=== PATIENT | male | born 1965 | race Caucasian/White ===

== ENCOUNTER 2017-02-23 13:40 | Emergency (ER) | payer BC ==
[~2017-02-23] VITALS: Ht 185.4 cm; Wt 97.5 kg
[~2017-02-23 13:40] MED LIST: CYCLOBENZAPRINE5 MG PO; PERCOCET 5-3251 EACH PO
[2017-02-23] MEDS ORDERED: OMEPRAZOLE20 M1 PO (13:50)
[2017-02-23] MEDS ORDERED: ASPIR-LOW81 MG PO (13:50)
--- NOTE | 2017-02-23 18:37 | EKG ---
[facility] [address] [facility] [place], [place] [address] Signed Sinus bradycardia Possible Anterior infarct , age undetermined Abnormal ECG No previous ECGs available Confirmed by JETT LYNN MD ([id number]) on 02/23/2017 6:37:44 PM Electronically Signed By: JETT LYNN MD 02/23/17 1837 PATIENT NAME: MIMI FERREIRA Electrocardiogram DATE OF : 63 PHYSICIAN: JETT LYNN MD REPORT #: [id number] REPORT IS CONFIDENTIAL AND NOT TO BE RELEASED WITHOUT AUTHORIZATION
== END 2017-02-23 15:45 | disposition home or self-care (01) ==
LOC: ED 13:40
DX: I49.3 Ventricular premature depolarization (principal); R73.9 Hyperglycemia, unspecified; F17.200 Nicotine dependence, unspecified, uncomplicated; Z79.899 Other long term (current) drug therapy; Z79.82 Long term (current) use of aspirin
CPT/HCPCS: 80053; 84443; 84484; 85025; 93005; 93010; 99284

== ENCOUNTER 2017-07-11 06:29 | Day surgery (SDC) | payer BC ==
[~2017-07-11] VITALS: Ht 185.4 cm; Wt 104.8 kg
[~2017-07-11 06:29] MED LIST changes: +ASPIR-LOW81 MG PO; +OMEPRAZOLE20 M1 PO
[2017-07-11] MEDS ORDERED: CAL MAG ZINC +1 EACH PO (06:42)
--- NOTE | 2017-07-11 09:54 | OR ---
[facility] [address] [place], [place] [address] Signed DATE OF OPERATION: 07/11/2017 SURGEON: Erica Shine MD PREOPERATIVE DIAGNOSES: 1. Gastroesophageal reflux disease. 2. Personal history of colonic polyps. POSTOPERATIVE DIAGNOSES: 1. Diffuse gastritis. 2. A 4 mm polyps x4 in base of cecum. 3. A 5 mm polyp at 25 cm. 4. Jxbllqh-lz-ycelpkum internal hemorrhoids. 5. Aoimgbz-ii-tkxwjksj external hemorrhoids. PROCEDURES: 1. EGD with CLOtest and biopsies of the antrum. 2. Colonoscopy with hot biopsy. ESTIMATED BLOOD LOSS: None. 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 He came to us from [place], [place]. He has been sent for both upper and lower endoscopy. He had this done at age 48. The upper endoscopy, cannot remember, but he said 11 colonic polyps were removed. They wanted him back in 3 years for repeat colonoscopy. In the meantime, he said he is having more acid reflux symptoms even though he is on Omeprazole. I gave him booklets on both acid reflux and colorectal polyps and cancer. We looked at those together in detail. We also looked at both upper and lower endoscopy. He understands the nature of those 2 tests along with the risks including, but not limited to gas, bloating, crampy abdominal pain, bleeding, perforation requiring surgery, and missed diagnosis. He also understands the need for IV conscious sedation. He had expressed understanding and wished to proceed. PROCEDURE NOTE: Ceferino was taken into our endoscopy suite and given divided doses of 7 mg of Versed and 200 mcg of Fentanyl to cover both cases. The posterior oropharynx was anesthetized with Hurricaine spray. A bite block was utilized for the upper endoscopy. The adult gastroscope had been introduced and advanced all the way out into the third portion of the duodenum under direct visualization of the camera without difficulty. The duodenum and pyloric channel were unremarkable. The stomach showed diffuse erythematous changes consistent with lfzo-lm-xhpjogkk diffuse gastritis. There were no ulcerations. There were no gastric or esophageal varices. Upon retroflexion of the scope, I really could not appreciate a hiatal hernia. The scope was withdrawn up through the area of the GE Electronically Signed By: ERICA SHINE MD 07/11/17 0954 PATIENT NAME: CEFERINO FERREIRA OPERATIVE REPORT DATE OF : 63 PHYSICIAN: ERICA SHINE MD REPORT #: [id number] REPORT IS CONFIDENTIAL AND NOT TO BE RELEASED WITHOUT AUTHORIZATION [facility] [address] [place], [place] [address] Signed junction, which was compliant without stricture. The Z-line remains intact. There was no Grey's mucosa, no distal esophagitis. The middle and upper esophagus were unremarkable. After this, the gas was suctioned out and gastroscope removed. Ceferino tolerated his upper endoscopy quite well. Ceferino was then rotated into the left lateral decubitus position. He was maintained on IV sedation with Versed and Fentanyl. A digital rectal exam was performed and this was unremarkable including the prostate exam. The adult colonoscope was then introduced and advanced all the way around into the cecum under direct visualization of camera without difficulty. His prep was good. He had 4 mm polyps x4 in the base of the cecum. They were easily removed with the help of hot biopsy forceps. The scope was then slowly withdrawn. We could see a polypoid lesion back at 25 cm. We went ahead and removed that with a hot biopsy forceps. We did not see diverticulosis. The rectum was unremarkable. Upon retroflexion of scope, he really has minimal internal hemorrhoids. The gas was then suctioned out and colonoscope removed. Ceferino tolerated the procedure quite well. RECOMMENDATIONS: I will see Ceferino back in my office in 7 to 14 days to review his results. Erica Shine MD ALB/MODL /[id number] cc: Rick Meadows DO Electronically Signed By: ERICA SHINE MD 07/11/17 0954 PATIENT NAME: CEFERINO FERREIRA OPERATIVE REPORT DATE OF : 63 PHYSICIAN: ERICA SHINE MD REPORT #: [id number] REPORT IS CONFIDENTIAL AND NOT TO BE RELEASED WITHOUT AUTHORIZATION
== END 2017-07-11 08:55 | disposition home or self-care (01) ==
LOC: OPS 06:29 → DS 06:29 → OPS 06:45
PROVIDERS: Colon & Rectal Surgery
PROC: 0DBE8ZX Excision of Large Intestine, Via Natural or Artificial Opening Endoscopic, Diagnostic (ICD-10-PCS; 2017-07-11)
PROC: 0DB98ZX Excision of Duodenum, Via Natural or Artificial Opening Endoscopic, Diagnostic (ICD-10-PCS; principal; 2017-07-11 06:45)
PROC: 0DBH8ZX Excision of Cecum, Via Natural or Artificial Opening Endoscopic, Diagnostic (ICD-10-PCS; 2017-07-11 06:45)
DX: Z12.11 Encounter for screening for malignant neoplasm of colon (principal); D12.0 Benign neoplasm of cecum; K63.5 Polyp of colon; K29.50 Unspecified chronic gastritis without bleeding; K64.8 Other hemorrhoids; K64.4 Residual hemorrhoidal skin tags; K21.9 Gastro-esophageal reflux disease without esophagitis; F17.210 Nicotine dependence, cigarettes, uncomplicated; Z86.010 Personal history of colon polyps; Z98.890 Other specified postprocedural states
CPT/HCPCS: 86677; 99152; 99153; J2250; J3010; J7120